=== PATIENT | female | born 1965 | race Caucasian/White ===

== ENCOUNTER 2021-07-15 18:59 | Emergency (ER) | payer OTHER ==
[2021-07-15 19:56] LABS: HEMOGLOBIN 12.8 gm/dl (12.3-15.3); RED BLOOD COUNT 4.53 M/UL (4.00-5.10); WHITE BLOOD COUNT 11.2 K/UL (4.5-11.0)
[2021-07-15 20:09] LABS: BUN/CREATININE RATIO 58 (0-10)
[2021-07-15] MEDS ORDERED: AEROCHAMBER1 EA XX (21:32)
[2021-07-15] MEDS ORDERED: PROVENTIL HFA6.7 GM INH (21:32)
== END 2021-07-15 21:38 | disposition home or self-care (01) ==
LOC: ER1 18:59
DX: U07.1 COVID-19 (principal); E11.65 Type 2 diabetes mellitus with hyperglycemia; N28.9 Disorder of kidney and ureter, unspecified; F17.200 Nicotine dependence, unspecified, uncomplicated; E78.5 Hyperlipidemia, unspecified; I10 Essential (primary) hypertension
CPT/HCPCS: 0240U; 71045; 80053; 82550; 82553; 83880; 84484; 85025; 93005; 99285